=== PATIENT | male | born 1985 | race Caucasian/White ===

== ENCOUNTER 2020-05-02 12:52 | Emergency (ER) | payer MEDICAID, SELFPAY ==
[2020-05-02 13:05] VITALS: BP 155/102; PULSE 100; RESP 18; TEMP 36.7; O2SAT 97; BMI 34.2
--- NOTE | 2020-05-02 13:10 | ED_ITS ---
HPI - Ear Problem General Chief complaint: Ear Problems Stated complaint: EAR PAIN Time Seen by Provider: 05/02/20 13:08 Source: patient Mode of arrival: ambulatory Limitations: no limitations History of Present Illness HPI Narrative: States left ear pain for past several days and today noted slight discharge from the ear. Denies any recent travel or swimming. No bloody discharge. No headache. No ear redness. MD Complaint: ear pain Location: left ear Duration: constant Severity: moderate Relieving factors: other (Has not tried anything) Discharge from ear: yes - clear Treatment prior to arrival: none Related Data Previous Rx's Medication Instructions Recorded amoxicillin-pot clavulanate 1 tab PO BID 10 Days #20 tab 05/02/20 [Augmentin] ibuprofen 800 mg PO Q8H PRN #30 tab 05/02/20 Allergies Allergy/AdvReac Type Severity Reaction Status Date / Time No Known Allergies Allergy Verified 05/02/20 13:07 Review of Systems Review of Systems: Constitutional: No Weight loss, No Fever, No Chills, No Night Sweats, No Fatigue, No Malaise ENT/Mouth: No Hearing loss, + Ear Pain, No Nasal Congestion, No Sinus Pain, No Hoarseness, No sore throat, No Rhinorrhea, No Swallowing Difficulty Eyes: No Eye Pain, No Swelling, No Redness, No Foreign Body, No Discharge, No Vision Changes Cardiovascular: No Chest Pain, No SOB, No Dyspnea on Exertion, No Orthopnea, No Edema, No Palpitations Respiratory: No Cough, No Sputum, No Wheezing, No Smoke Exposure, No Dyspnea Skin: No Skin Lesions, No rash Neuro: No Weakness, No Numbness, No Paresthesias, No Loss of Consciousness, No Dizziness, No Headache Psych: No Social Issues Heme/Lymph: No Bruising, No Bleeding,No Lymphadenopathy Endocrine: No Polyuria, No Polydipsia, No Temperature Intolerance Yes all other systems are reviewed and are negative [facility] Past Medical History Medical History (Updated 05/02/20 @ 13:12 by Harmeet Martinez NP) No known health problems Social History Social History Advance Directives: No Advance Directives Information Provided: Yes Physical Exam Vital Signs: Vital Signs: Last Vital Signs Temp 98.0 F 05/02/20 13:05 Pulse 100 05/02/20 13:05 Resp 18 05/02/20 13:05 BP 155/102 H 05/02/20 13:05 Pulse Ox 97 05/02/20 13:05 Body Mass Index 34.2 Reviewed Const: General: cooperative and healthy appearing; No acute distress or intoxicated appearing Nutritional Appearance: average body habitus Orientation/consciousness: patient oriented x3 HENMT: Head: Yes normal to inspection Ears: TM normal on the left (Slight TM rupture at 07:00 o'clock. No discharge.), mastoids normal and no periauricular adenopathy Eyes: General: appearance normal, both eyes and all related structures Visual Ley: normal visual ley by confrontation Neck: Neck: Yes normal visual inspection, No positive Brudzinski's sign, No positive Kernig's sign and No tender Thyroid: Thyroid normal Chest: Chest palpation & inspection: normal inspection of the chest Resp: Effort & Inspection: normal respiratory effort Neuro: General: patient oriented x3 Extrem: General: Yes normal to inspection Discharge Plan Discharge Clinical Impression: Otitis media Qualifiers: Otitis media type: suppurative Chronicity: acute Laterality: left Recurrence: non-recurrent Spontaneous tympanic membrane rupture: with spontaneous rupture Qualified Code(s): H66.012 - Acute suppurative otitis media with spontaneous rupture of ear drum, left ear Patient Disposition: Home, Self-Care Instructions: Ruptured Eardrum (ED), Ear Infection (ED) Additional Instructions: Take your antibiotic as prescribed Ibuprofen for pain as prescribed No swimming or submerging her head under water Have recheck in 7 days Return if any concerns or worsening symptoms Thank you Prescriptions: New ibuprofen 800 mg tablet 800 mg PO Q8H PRN (Reason: pain) Qty: 30 RF: 0 amoxicillin-pot clavulanate [Augmentin] 875-125 mg tablet 1 tab PO BID 10 Days Qty: 20 RF: 0 Referrals: ED Physician,Generic [Emergency Provider] - 2 days (Your primary care doctor in 7-10 days)
[2020-05-02] MEDS: Ibuprofen 800 MG TABLET PO (13:20)
[2020-05-02] MEDS: Amoxicillin/Potassium Clav 875 MG TABLET PO (13:20)
== END 2020-05-02 13:24 | disposition home or self-care (01) ==
PROVIDERS: Emergency Provider Emergency Medicine
DX: H66.012 Acute suppurative otitis media with spontaneous rupture of ear drum, left ear (principal); H92.02 Otalgia, left ear
CPT/HCPCS: 99283

== ENCOUNTER 2020-12-18 19:59 | Emergency (ER) | payer MEDICAID, SELFPAY ==
--- NOTE | ~2020-12-18 | XR_ITS ---
Indication: Trauma EXAMINATION: Multiple studies, left ankle, left foot, left knee. 2 views of left knee do not demonstrate fracture or dislocation. 3 views of the left foot do not demonstrate acute fracture or dislocation. 2 views of the left ankle do not demonstrate acute fracture or dislocation. Soft tissue swelling is noted. Mild degenerative changes. XR/XR ankle LT 2V IMPRESSION: Multiple studies. No acute bony finding.
--- NOTE | ~2020-12-18 | XR_ITS ---
Indication: Trauma EXAMINATION: Multiple studies, left ankle, left foot, left knee. 2 views of left knee do not demonstrate fracture or dislocation. 3 views of the left foot do not demonstrate acute fracture or dislocation. 2 views of the left ankle do not demonstrate acute fracture or dislocation. Soft tissue swelling is noted. Mild degenerative changes. XR/XR knee LT 2V IMPRESSION: Multiple studies. No acute bony finding.
--- NOTE | ~2020-12-18 | XR_ITS ---
Indication: Trauma EXAMINATION: Multiple studies, left ankle, left foot, left knee. 2 views of left knee do not demonstrate fracture or dislocation. 3 views of the left foot do not demonstrate acute fracture or dislocation. 2 views of the left ankle do not demonstrate acute fracture or dislocation. Soft tissue swelling is noted. Mild degenerative changes. XR/XR foot LT 2V IMPRESSION: Multiple studies. No acute bony finding.
[2020-12-18 20:43] VITALS: BP 125/70; PULSE 67; RESP 16; TEMP 36.2; O2SAT 96; BMI 34.8
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
== END 2020-12-18 23:26 | disposition home or self-care (01) ==
PROVIDERS: Emergency Provider Student in an Organized Health Care Education/Training Program
DX: S93.402A Sprain of unspecified ligament of left ankle, initial encounter (principal); S96.912A Strain of unspecified muscle and tendon at ankle and foot level, left foot, initial encounter; X58.XXXA Exposure to other specified factors, initial encounter; Y93.67 Activity, basketball; Y92.9 Unspecified place or not applicable; Y99.9 Unspecified external cause status
CPT/HCPCS: 73560; 73600; 73620; 99283; 99284

== ENCOUNTER 2021-04-02 16:45 | Emergency (ER) | payer MEDICAID, SELFPAY ==
--- NOTE | ~2021-04-02 | XR_ITS ---
EXAMINATION: XR CHEST CLINICAL INFORMATION: Chest pain COMPARISON: Chest x-ray on 08/13/2019 TECHNIQUE: Frontal view of the chest was obtained. FINDINGS: Significantly diminished lung volumes. The cardiac mediastinal silhouette is normal. No areas of consolidation. No pleural effusions. XR/XR chest 1V IMPRESSION: Diminished lung volumes.
[2021-04-02 17:36] VITALS: BP 154/94; PULSE 93; RESP 22; TEMP 36.6; O2SAT 100; BMI 33.5
--- NOTE | 2021-04-02 17:38 | ECG_ITS ---
Test Reason : SY[place]OPEE Blood Pressure : / mmHG Vent. Rate : 085 BPM Atrial Rate : 085 BPM P-R Int : 180 ms QRS Dur : 098 ms QT Int : 368 ms P-R-T Axes : 047 048 008 degrees QTc Int : 437 ms Normal sinus rhythm Normal ECG No previous ECGs available Referred By: Generic ED Physician Electronically Signed By:CAITY DIAZ MD
[2021-04-02 19:17] LABS: MANUAL DIFF FLAG NO
[2021-04-02 19:23] LABS: Basophils Percent Auto 0.1 % (0-2); Eosinophils Percent Auto 0.1 % (0-4); Hematocrit 43.8 % (42-52); Hemoglobin 15.2 g/dl (14.0-18.0); Imm Gran Abs Auto 0.04 X10*3/uL (0.00-0.03); Imm Gran Pct Auto 0.4 % (0.0-0.4); Lymphocytes Absolute Auto 0.6 X10*3/uL (1.2-4.9); Lymphocytes Percent Auto 6.3 % (20-40); Mean Corpuscular HGB Conc 34.7 g/dl (31.0-36.0); Mean Corpuscular Hemoglobin 29.5 pg (27.0-33.0); Mean Corpuscular Volume 84.9 fL (80-98); Mean Platelet Volume 9.2 fL (9.4-12.4); Monocytes Absolute Auto 0.6 X10*3/uL (0.1-1.2); Monocytes Percent Auto 6.8 % (2-11); Neutrophils Absolute Auto 7.9 X10*3/uL (2.0-8.3); Neutrophils Percent Auto 86.3 % (45-73); Platelet Count 265 X10*3/uL (160-400); Red Blood Count 5.16 X10*6/uL (4.60-5.80); Red Cell Distribution Width 12.2 % (11.0-16.0); White Blood Count 9.1 X10*3/uL (4.8-10.8)
[2021-04-02 19:31] LABS: Anion Gap 15 (12-20); Blood Urea Nitrogen 12 mg/dL (9-16); Carbon Dioxide 19 mmol/L (22-29); Chloride 107 mmol/L (96-108); Creatinine Clr Calc Pharmacy 139.3; Estimated Glomerular Filt Rate > 60; Glucose Random 103 mg/dL (60-115); Potassium 3.6 mmol/L (3.3-5.1); Sodium 137 mmol/L (135-145)
[2021-04-02 19:38] LABS: Troponin-I High Sensitivity < 3.5 ng/L (<3.5-35.0)
[2021-04-02 20:18] LABS: COVID-19 Test Negative (Negative)
--- NOTE | 2021-04-02 21:27 | ED_ITS ---
HPI - Chest Pain General Chief Complaint: Chest Pain Stated Complaint: Bodyaches/Vomiting/Diarrhea Time Seen by Provider: 04/02/21 21:17 Source: patient Mode of arrival: ambulatory Limitations: no limitations Related Data Previous Rx's Medication Instructions Recorded amoxicillin 875 mg-potassium 1 tab PO BID 10 Days #20 tab 05/02/20 clavulanate 125 mg tablet (Augmentin) ibuprofen 800 mg tablet 800 mg PO Q8H PRN #30 tab 05/02/20 Allergies Allergy/AdvReac Type Severity Reaction Status Date / Time No Known Allergies Allergy Verified 04/02/21 17:35 [facility] Past Medical History Attestation statement: The following information was validated with the patient. Medical History No known health problems Social History Social History Advance Directives: No Advance Directives Information Provided: No Physical Exam Vital Signs: Vital Signs: Last Vital Signs Temp 97.9 F 04/02/21 17:36 Pulse 93 04/02/21 17:36 Resp 22 H 04/02/21 17:36 BP 154/94 H 04/02/21 17:36 Pulse Ox 100 04/02/21 17:36 Body Mass Index 33.5 MDM - Chest Pain Lab Data Result diagrams: 04/02/21 19:11 04/02/21 19:11 Labs: Lab Results 04/02/21 04/02/21 04/02/21 Range/Units 19:11 19:11 19:11 WBC 9.1 (4.8-10.8) X10*3/uL RBC 5.16 (4.60-5.80) X10*6/uL Hgb 15.2 (14.0-18.0) g/dl Hct 43.8 (42-52) % MCV 84.9 (80-98) fL MCH 29.5 (27.0-33.0) pg MCHC 34.7 (31.0-36.0) g/dl RDW 12.2 (11.0-16.0) % Plt Count 265 (160-400) X10*3/uL MPV 9.2 L (9.4-12.4) fL Immature Gran % (Auto) 0.4 (0.0-0.4) % Neut % (Auto) 86.3 H (45-73) % Lymph % (Auto) 6.3 L (20-40) % Russell % (Auto) 6.8 (2-11) % Eos % (Auto) 0.1 (0-4) % Baso % (Auto) 0.1 (0-2) % Lymph # (Auto) 0.6 L (1.2-4.9) X10*3/uL Russell # (Auto) 0.6 (0.1-1.2) X10*3/uL Eos # (Auto) 0.0 (0.0-0.4) X10*3/uL Baso # (Auto) 0.0 (0.0-0.2) X10*3/uL Abs Immat Gran (auto) 0.04 H (0.00-0.03) X10*3/uL Absolute Neuts (auto) 7.9 (2.0-8.3) X10*3/uL Absolute Nucleated RBC 0.000 (0.0-0.012) X10*3/uL Nucleated RBC % (auto) 0.0 (0.0-0.2) /100WBC Sodium 137 (135-145) mmol/L Potassium 3.6 (3.3-5.1) mmol/L Chloride 107 (96-108) mmol/L Carbon Dioxide 19 L (22-29) mmol/L Anion Gap 15 (12-20) BUN 12 (9-16) mg/dL Creatinine 0.92 (0.5-1.4) mg/dL Estim Creat Clear Calc 139.3 Estimated GFR > 60 Random Glucose 103 (60-115) mg/dL Calcium 9.0 (8.4-10.2) mg/dL Troponin I High Sens < 3.5 (<3.5-35.0) ng/L COVID-19 (EWA) (Negative) COVID-19 Clin Com 04/02/21 Range/Units 19:55 WBC (4.8-10.8) X10*3/uL RBC (4.60-5.80) X10*6/uL Hgb (14.0-18.0) g/dl Hct (42-52) % MCV (80-98) fL MCH (27.0-33.0) pg MCHC (31.0-36.0) g/dl RDW (11.0-16.0) % Plt Count (160-400) X10*3/uL MPV (9.4-12.4) fL Immature Gran % (Auto) (0.0-0.4) % Neut % (Auto) (45-73) % Lymph % (Auto) (20-40) % Russell % (Auto) (2-11) % Eos % (Auto) (0-4) % Baso % (Auto) (0-2) % Lymph # (Auto) (1.2-4.9) X10*3/uL Russell # (Auto) (0.1-1.2) X10*3/uL Eos # (Auto) (0.0-0.4) X10*3/uL Baso # (Auto) (0.0-0.2) X10*3/uL Abs Immat Gran (auto) (0.00-0.03) X10*3/uL Absolute Neuts (auto) (2.0-8.3) X10*3/uL Absolute Nucleated RBC (0.0-0.012) X10*3/uL Nucleated RBC % (auto) (0.0-0.2) /100WBC Sodium (135-145) mmol/L Potassium (3.3-5.1) mmol/L Chloride (96-108) mmol/L Carbon Dioxide (22-29) mmol/L Anion Gap (12-20) BUN (9-16) mg/dL Creatinine (0.5-1.4) mg/dL Estim Creat Clear Calc Estimated GFR Random Glucose (60-115) mg/dL Calcium (8.4-10.2) mg/dL Troponin I High Sens (<3.5-35.0) ng/L COVID-19 (EWA) Negative (Negative) COVID-19 Clin Com See Note ECG Data ECG #1: Attestation: I personally reviewed and interpreted this ECG as follows: ECG interpretation date: 04/02/21 ECG interpretation time: 21:29 Interpretation: Rate: 85 Rhythm: NSR [place]: normal Normal P waves. Normal CLAUDIA. Normal QRS complex. ST T wave : no RICHARDSON, nonspecific qTC: normal prior studies: no acute ischemia The study has been interpreted contemporaneously by me. . Discharge Plan Discharge Prescriptions: No Action ibuprofen 800 mg tablet 800 mg PO Q8H PRN (Reason: pain) Qty: 30 RF: 0 amoxicillin-pot clavulanate [Augmentin] 875-125 mg tablet 1 tab PO BID 10 Days Qty: 20 RF: 0
[2021-04-02 21:38] LABS: Lipase 21 U/L (8-78)
[2021-04-02] MEDS: 0.9 % Sodium Chloride 1,000 ML 999 ML IV (22:10)
--- NOTE | 2021-04-02 22:11 | ED_ITS ---
HPI - Nausea/Vomiting/Diarrhea General Chief complaint: Chest Pain Stated complaint: Bodyaches/Vomiting/Diarrhea Time Seen by Provider: 04/02/21 21:17 Source: patient Mode of arrival: ambulatory Limitations: no limitations History of Present Illness MD elicited complaint: nausea, vomiting, diarrhea and abdominal pain Onset (ago): hour(s) (started at 11am today) Description of vomiting: food contents and watery Associated nausea: Yes Associated abdominal pain: Yes Location of pain: diffuse Severity: mild Quality: cramping Exacerbating factors: eating Relieving factors: none Context: other (denies ) Associated symptoms: chest pain, fever/chills, headaches, loss of appetite, malaise, nausea/vomiting, weakness and other (syncopal event after multiple bouts of emesis ) Related Data Previous Rx's Medication Instructions Recorded amoxicillin 875 mg-potassium 1 tab PO BID 10 Days #20 tab 05/02/20 clavulanate 125 mg tablet (Augmentin) ibuprofen 800 mg tablet 800 mg PO Q8H PRN #30 tab 05/02/20 ondansetron 4 mg disintegrating 4 mg PO Q8H PRN #20 tab 04/02/21 tablet Allergies Allergy/AdvReac Type Severity Reaction Status Date / Time No Known Allergies Allergy Verified 04/02/21 17:35 Review of Systems Review of Systems: Constitutional : No Weight loss, No Fever, pos Chills ENT/Mouth : No sore throat, No Rhinorrhea Eyes: No Swelling, No Redness Cardiovascular : No Chest Pain, No SOB, NoEdema Respiratory : No Cough, No Sputum, No Wheezing Gastrointestinal : Positive Nausea, Positive Vomiting, positive Diarrhea, positive abdominal Pain, No Hematochezia, No Melena Genitourinary : No Dysuria, No Urinary Frequency, No Hematuria, No Urgency Musculoskeletal : No joint pain, pos Myalgias, No Joint Swelling Skin : No Skin Lesions, No rash Neuro : No Weakness, No Numbness, No Dizziness, No Headache Psych : No Anxiety/Panic, No Depression Heme/Lymph: No Bruising, No Lymphadenopathy Endocrine : No Polyuria, No Polydipsia All other systems reviewed and are negative. Gastrointestinal: Gastrointestinal: Reports nausea PMFSH Past Medical History Attestation statement: The following information was validated with the patient. Medical History No known health problems Social History Social History Alcohol intake: never Patient Tobacco Use Status: Never used Tobacco Use of substances other than those prescribed or required for medical reasons: No Advance Directives: No Advance Directives Information Provided: No Physical Exam Vital Signs: Vital Signs: Last Vital Signs Temp 98.6 F 04/02/21 22:18 Pulse 76 04/02/21 22:18 Resp 18 04/02/21 22:18 BP 131/76 04/02/21 22:18 Pulse Ox 100 04/02/21 22:18 Body Mass Index 33.5 Appearance: Alert. Oriented X3. No acute distress. Eyes: Pupils equal, round and reactive to light. ENT: Pharynx normal. Neck: Normal inspection. Neck supple. CVS: Normal heart rate and rhythm. Pulses normal. Respiratory: No respiratory distress. Breath sounds normal. Abdomen: Soft and nontender. Skin: Skin warm and dry. Normal skin color. Normal skin turgor. Extremities: No lower extremity edema. No calf ttp Neuro: Oriented X 3. No motor deficit. No sensory deficit. Course Course Course Narrative: pateint feels better stable for DC MDM - Nausea/Vomiting/Diarrhea MDM Narrative Medical decision making narrative: 35 yo male comes in with n/v/d and overall not feeling starting this AM, he denies abx, sick contacts, at this time seems viral in nature will obtain basic labs, IVF, supportive medications, he has a benign abdominal exam he notes he had a syncopal episode after multiple bouts of vomiting suspect vasovagal he denies chest pain to me at this time EKG and troponin ordered, chest pain all day he is PERC negative in no distress I do not suspect dissection Lab Data Result diagrams: 04/02/21 19:11 04/02/21 19:11 Labs: Lab Results 04/02/21 04/02/21 04/02/21 Range/Units 19:11 19:11 19:11 WBC 9.1 (4.8-10.8) X10*3/uL RBC 5.16 (4.60-5.80) X10*6/uL Hgb 15.2 (14.0-18.0) g/dl Hct 43.8 (42-52) % MCV 84.9 (80-98) fL MCH 29.5 (27.0-33.0) pg MCHC 34.7 (31.0-36.0) g/dl RDW 12.2 (11.0-16.0) % Plt Count 265 (160-400) X10*3/uL MPV 9.2 L (9.4-12.4) fL Immature Gran % (Auto) 0.4 (0.0-0.4) % Neut % (Auto) 86.3 H (45-73) % Lymph % (Auto) 6.3 L (20-40) % Treasure % (Auto) 6.8 (2-11) % Eos % (Auto) 0.1 (0-4) % Baso % (Auto) 0.1 (0-2) % Lymph # (Auto) 0.6 L (1.2-4.9) X10*3/uL Treasure # (Auto) 0.6 (0.1-1.2) X10*3/uL Eos # (Auto) 0.0 (0.0-0.4) X10*3/uL Baso # (Auto) 0.0 (0.0-0.2) X10*3/uL Abs Immat Gran (auto) 0.04 H (0.00-0.03) X10*3/uL Absolute Neuts (auto) 7.9 (2.0-8.3) X10*3/uL Absolute Nucleated RBC 0.000 (0.0-0.012) X10*3/uL Nucleated RBC % (auto) 0.0 (0.0-0.2) /100WBC Sodium 137 (135-145) mmol/L Potassium 3.6 (3.3-5.1) mmol/L Chloride 107 (96-108) mmol/L Carbon Dioxide 19 L (22-29) mmol/L Anion Gap 15 (12-20) BUN 12 (9-16) mg/dL Creatinine 0.92 (0.5-1.4) mg/dL Estim Creat Clear Calc 139.3 Estimated GFR > 60 Random Glucose 103 (60-115) mg/dL Calcium 9.0 (8.4-10.2) mg/dL Total Bilirubin 1.1 H (0.0-1.0) mg/dL Direct Bilirubin 0.4 (0.0-0.5) mg/dL AST 17 (5-37) U/L ALT 21 (0-40) U/L Alkaline Phosphatase 64 (39-117) U/L Troponin I High Sens < 3.5 (<3.5-35.0) ng/L Total Protein 7.1 (6.5-8.0) g/dL Albumin 4.2 (3.5-5.0) g/dL Lipase 21 (8-78) U/L COVID-19 (EWA) (Negative) COVID-19 Clin Com 04/02/21 04/02/21 Range/Units 19:55 22:16 WBC (4.8-10.8) X10*3/uL RBC (4.60-5.80) X10*6/uL Hgb (14.0-18.0) g/dl Hct (42-52) % MCV (80-98) fL MCH (27.0-33.0) pg MCHC (31.0-36.0) g/dl RDW (11.0-16.0) % Plt Count (160-400) X10*3/uL MPV (9.4-12.4) fL Immature Gran % (Auto) (0.0-0.4) % Neut % (Auto) (45-73) % Lymph % (Auto) (20-40) % Treasure % (Auto) (2-11) % Eos % (Auto) (0-4) % Baso % (Auto) (0-2) % Lymph # (Auto) (1.2-4.9) X10*3/uL Treasure # (Auto) (0.1-1.2) X10*3/uL Eos # (Auto) (0.0-0.4) X10*3/uL Baso # (Auto) (0.0-0.2) X10*3/uL Abs Immat Gran (auto) (0.00-0.03) X10*3/uL Absolute Neuts (auto) (2.0-8.3) X10*3/uL Absolute Nucleated RBC (0.0-0.012) X10*3/uL Nucleated RBC % (auto) (0.0-0.2) /100WBC Sodium (135-145) mmol/L Potassium (3.3-5.1) mmol/L Chloride (96-108) mmol/L Carbon Dioxide (22-29) mmol/L Anion Gap (12-20) BUN (9-16) mg/dL Creatinine (0.5-1.4) mg/dL Estim Creat Clear Calc Estimated GFR Random Glucose (60-115) mg/dL Calcium (8.4-10.2) mg/dL Total Bilirubin (0.0-1.0) mg/dL Direct Bilirubin (0.0-0.5) mg/dL AST (5-37) U/L ALT (0-40) U/L Alkaline Phosphatase (39-117) U/L Troponin I High Sens < 3.5 (<3.5-35.0) ng/L Total Protein (6.5-8.0) g/dL Albumin (3.5-5.0) g/dL Lipase (8-78) U/L COVID-19 (EWA) Negative (Negative) COVID-19 Clin Com See Note ECG Data Attestation: I personally reviewed and interpreted this ECG as follows: ECG interpretation date: 04/02/21 ECG interpretation time: 22:11 Interpretation: Rate: 85 Rhythm: NSR [place]: normal Normal P waves. Normal CLAUDIA. Normal QRS complex. ST T wave : no RICHARDSON, nonspecific qTC: normal prior studies: no acute ischemia The study has been interpreted contemporaneously by me. Discharge Plan Discharge Clinical Impression: Vomiting Qualifiers: Vomiting type: unspecified Vomiting Intractability: non-intractable Nausea presence: with nausea Qualified Code(s): R11.2 - Nausea with vomiting, unspecified Diarrhea Qualifiers: Diarrhea type: unspecified type Qualified Code(s): R19.7 - Diarrhea, unspecified Syncope Qualifiers: Syncope type: vasovagal syncope Qualified Code(s): R55 - Syncope and collapse Patient Disposition: Home, Self-Care Instructions: Syncope (ED), Acute Nausea and Vomiting (ED), Acute Diarrhea (ED) Additional Instructions: return to ED for any worsening symptoms or concerns drink plenty of fluids repeat COVID test in 2 days Prescriptions: New ondansetron 4 mg tablet,disintegrating 4 mg PO Q8H PRN (Reason: nausea and vomiting) Qty: 20 RF: 0 No Action ibuprofen 800 mg tablet 800 mg PO Q8H PRN (Reason: pain) Qty: 30 RF: 0 amoxicillin-pot clavulanate [Augmentin] 875-125 mg tablet 1 tab PO BID 10 Days Qty: 20 RF: 0 Stand Alone Forms: Work/School Release
[2021-04-02 22:18] VITALS: BP 131/76; PULSE 76; RESP 18; TEMP 37; O2SAT 100
[2021-04-02] MEDS: ondansetron HCL 4 MG/2 ML VIAL IVPUSH (22:22)
[2021-04-02] MEDS: Famotidine/PF 20 MG/2 ML VIAL IVPUSH (22:22)
[2021-04-02] MEDS: Acetaminophen 325 MG TABLET 650 MG PO (22:22)
[2021-04-02 22:36] LABS: Alanine Aminotransferase 21 U/L (0-40); Albumin Level 4.2 g/dL (3.5-5.0); Alkaline Phosphatase 64 U/L (39-117); Aspartate Amino Transferase 17 U/L (5-37); Bilirubin Direct 0.4 mg/dL (0.0-0.5); Bilirubin Total 1.1 mg/dL (0.0-1.0); Total Protein 7.1 g/dL (6.5-8.0)
[2021-04-02 22:51] LABS: Troponin-I High Sensitivity < 3.5 ng/L (<3.5-35.0)
== END 2021-04-02 23:26 | disposition home or self-care (01) ==
PROVIDERS: Student in an Organized Health Care Education/Training Program; Emergency Provider Emergency Medicine
DX: M79.10 Myalgia, unspecified site (principal); R51.9 Headache, unspecified; R11.2 Nausea with vomiting, unspecified; R55 Syncope and collapse; Z20.822 Contact with and (suspected) exposure to COVID-19; Z79.899 Other long term (current) drug therapy
CPT/HCPCS: 36415; 71045; 80048; 80076; 83690; 84484; 85025; 87635; 93005; 96361; 96374; 96375; 99285; J2405

== ENCOUNTER 2023-01-05 23:38 | Emergency (ER) | payer MEDICAID, SELFPAY ==
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
[2023-01-05 23:50] VITALS: BP 154/106; PULSE 66; O2SAT 98; BMI 31.3
[2023-01-06] MEDS: oxyCODONE HCl Immed Release 5 MG TABLET PO (00:15)
[2023-01-06] MEDS: Diphth,Pertus(ACell),Tet Adult 0.5 ML SYRINGE IM (00:16)
[2023-01-06] MEDS: Amoxicillin/Potassium Clav 875 MG TABLET PO (00:16)
--- NOTE | 2023-01-06 00:18 | PC.NURSE ---
Pt refused vital check at this time.
--- NOTE | 2023-01-06 00:22 | ED.GENADULT ---
HPI - General Adult General Chief complaint: Animal Bite Stated complaint: Dog Bite Time Seen by Provider: 01/05/23 23:51 Source: patient, RN notes reviewed and old records reviewed Mode of arrival: ambulatory Limitations: no limitations History of Present Illness HPI narrative: 37-year-old male presents for evaluation of a dog bite Patient reports that just prior to arrival he was ?bit by my neighbor down the halls pit bull. He was bit on the left forearm, left buttocks and left lower leg Patient is unsure of the dog's rabies status He is unsure of his own tetanus status He complains of 10/10 pain mostly to the left forearm Related Data Previous Rx's Medication Instructions Recorded amoxicillin 875 mg-potassium 1 tab PO BID 10 days #20 tabs 05/02/20 clavulanate 125 mg tablet (Augmentin) ibuprofen 800 mg tablet 800 mg PO Q8H PRN pain #30 tabs 05/02/20 ondansetron 4 mg disintegrating 4 mg PO Q8H PRN nausea and 04/02/21 tablet vomiting #20 tabs amoxicillin 875 mg-potassium 1 tab PO BID #10 tabs 01/06/23 clavulanate 125 mg tablet Allergies Allergy/AdvReac Type Severity Reaction Status Date / Time No Known Allergies Allergy Verified 04/02/21 17:35 Review of Systems Constitutional: Constitutional: Denies fever(s) Musculoskeletal: Comments: Left forearm pain Integumentary/Breasts: Comments: Puncture wound to left forearm PMFSH Past Medical History Medical History No known health problems Social History Social History Alcohol intake: never Patient Tobacco Use Status: Never used Tobacco Advance Directives: No Advance Directives Information Provided: Yes Physical Exam ED Vital Signs: BMI result Body Mass Index 31.3 Skin Other: Patient has 2 puncture wounds to the left forearm with some fatty tissue exposed, musculature vasculature exposed. Minimal active bleeding from 1 of the wounds in the forearm. Patient has very superficial scrapes to the left buttocks and left lower leg Extrem Other: Mild edema to the left forearm, no significant erythema. No edema or tenderness to left wrist or elbow. Course Reevaluation(s) Reevaluation #1: I had a lengthy discussed with the patient regarding rabies, risks and benefits and the fact that it is fatal if left untreated and the patient was exposed. The patient opted to wait till tomorrow to try to verify that the dog was up-to-date on his rabies vaccine. He reports that he spoke the neighbor who own dog and was told that the dog was up-to-date on rabies but the patient has not seen paperwork to confirm this. I encouraged the patient to return to the ER for the rabies series if he cannot get the paperwork to prove rabies status of the dog or he changes mind and elected to have the rabies series regardless Time: 00:52 Medications Administered Discontinued Medications Generic Name Dose Route Start Last Admin Trade Name Freq PRN Reason Stop Dose Admin Amoxicillin/Clavulanate Potassium 875 mg 01/05/23 23:57 01/06/23 00:16 Amoxicillin/Potassium Clav 875 Mg Tablet PO 01/05/23 23:58 875 mg ONCE ONE Administration Diphtheria/Tetanus/Acell Pertussis 0.5 ml 01/06/23 00:10 01/06/23 00:16 Diphth,Pertus(Acell),Tet Adult 0.5 Ml Syringe IM 01/06/23 00:11 0.5 ml .ONCE ONE Administration Oxycodone HCl 5 mg 01/05/23 23:57 01/06/23 00:15 Oxycodone Hcl Immed Release 5 Mg Tablet PO 01/05/23 23:58 5 mg ONCE ONE Administration Medical Decision Making Medical Decision Making MDM Narrative: Patient sustained a dog bite to left forearm, 2 puncture wounds to left forearm are actively bleeding with some soft tissue exposed. The wounds are not gaping. Do not see any indication for sutures. We will clean the wounds, dressed the wounds. The patient consented to tetanus booster thus far. He is attempting to figure out the dog's rabies status before consenting to rabies series himself. Wound x-ray of the left forearm. He has very minor scratches to the left lower leg and left buttocks Differential Diagnosis Differential Diagnoses: The differential diagnosis associated with the presentation includes Dog bite And will bite Puncture wound Rabies exposure Arm fracture Contusion Independent Interpretation I performed an independent interpretation of an: Plain X-Ray (No acute fracture of the left forearm) Radiology Impression Discussion of test interpretation with radiology: I have reviewed the radiologist's reading. (No obvious displaced fracture of the left forearm) Discharge Plan Discharge Clinical Impression: Dog bite of left forearm Patient Disposition: Home, Self-Care Instructions: Animal Bite (ED) Additional Instructions: Take the Augmentin twice daily for the next 5 days Keep the area clean and dry If you cannot confirm the dog's rabies status may return to the ER to initiate the rabies vaccine Return for new or worsening symptoms Prescriptions: New amoxicillin-pot clavulanate 875-125 mg tablet 1 tab PO BID Qty: 10 0RF No Action ibuprofen 800 mg tablet 800 mg PO Q8H PRN (Reason: pain) Qty: 30 0RF amoxicillin-pot clavulanate [Augmentin] 875-125 mg tablet 1 tab PO BID 10 Days Qty: 20 0RF ondansetron 4 mg tablet,disintegrating 4 mg PO Q8H PRN (Reason: nausea and vomiting) Qty: 20 0RF
[2023-01-06 01:54] VITALS: BP 124/84; PULSE 56; RESP 14; O2SAT 98
== END 2023-01-06 02:03 | disposition home or self-care (01) ==
PROVIDERS: Emergency Provider Internal Medicine
DX: S51.852A Open bite of left forearm, initial encounter (principal); S31.825A Open bite of left buttock, initial encounter; S81.852A Open bite, left lower leg, initial encounter; W54.0XXA Bitten by dog, initial encounter; Y93.9 Activity, unspecified; Y92.9 Unspecified place or not applicable; Y99.9 Unspecified external cause status
CPT/HCPCS: 73090; 90471; 90715; 99284

== ENCOUNTER 2024-03-08 13:55 | Outpatient (REF) | payer MEDICAID, SELFPAY ==
[2024-03-08 17:35] LABS: MANUAL DIFF FLAG NO
[2024-03-08 17:46] LABS: Basophils Percent Auto 0.5 % (0-2); Eosinophils Absolute Auto 0.1 X10*3/uL (0.0-0.4); Eosinophils Percent Auto 1.4 % (0-4); Hematocrit 47.2 % (42.0-52.0); Hemoglobin 15.6 g/dl (14.0-18.0); Imm Gran Abs Auto 0.04 X10*3/uL (0.00-0.03); Imm Gran Pct Auto 0.5 % (0.0-0.4); Lymphocytes Absolute Auto 1.5 X10*3/uL (1.2-4.9); Lymphocytes Percent Auto 18.7 % (20-40); Mean Corpuscular HGB Conc 33.1 g/dl (31.0-36.0); Mean Corpuscular Hemoglobin 29.4 pg (27.0-33.0); Mean Corpuscular Volume 89.1 fL (80.0-98.0); Mean Platelet Volume 9.9 fL (9.4-12.4); Monocytes Absolute Auto 0.5 X10*3/uL (0.1-1.2); Monocytes Percent Auto 6.5 % (2-11); Neutrophils Absolute Auto 5.7 x10*3/uL (2.0-8.3); Neutrophils Percent Auto 72.4 % (45-73); Platelet Count 283 X10*3/uL (160-400); Red Cell Distribution Width 12.7 % (11.0-16.0); White Blood Count 7.8 X10*3/uL (4.8-10.8)
[2024-03-08 18:06] LABS: Alanine Aminotransferase 15 U/L (0-40); Albumin Level 4.5 g/dL (3.5-5.0); Alkaline Phosphatase 65 U/L (39-117); Anion Gap 11 (12-20); Aspartate Amino Transferase 17 U/L (5-37); Bilirubin Total 0.6 mg/dL (0.0-1.0); Blood Urea Nitrogen 10 mg/dL (9-16); Calcium 10.3 mg/dL (8.4-10.2); Carbon Dioxide 26 mmol/L (22-29); Chloride 106 mmol/L (96-108); Cholesterol 212 mg/dL (<200); Estimated Glomerular Filt Rate > 60; Glucose Random 89 mg/dL (60-115); HDL Cholesterol 59 mg/dL (>40); LDL Cholesterol Calculated 127 mg/dL (<100); Potassium 4.2 mmol/L (3.3-5.1); Sodium 139 mmol/L (135-145); Triglycerides 133 mg/dL (<150)
[2024-03-08 18:21] LABS: TSH reflex Free T4 9.78 uIU/mL (0.32-4.0)
[2024-03-08 18:28] LABS: HIV AB/AG Nonreactive (Nonreactive); HIV Num 1 0.04 S/CO (0.00-0.99); ~HepC Num1 0.13 S/CO (0.00-0.79); ~Hepatitis C Antibody Nonreactive (Nonreactive)
[2024-03-08 19:01] LABS: Free T4 (Free Thyroxine) 0.72 ng/dL (0.71-1.85)
[2024-03-09 15:33] LABS: Triiodothyronine T3 Total 119 ng/dL (76-181)
== END 2024-03-08 13:56 | disposition home or self-care (01) ==
LOC: HO.CHCLDS 13:55
PROVIDERS: Visit Provider Family Medicine
DX: E07.9 Disorder of thyroid, unspecified (principal); E66.9 Obesity, unspecified; Z13.9 Encounter for screening, unspecified
CPT/HCPCS: 36415; 80053; 80061; 84439; 84443; 84480; 85025; 86803; 87389

== ENCOUNTER 2024-04-03 09:18 | Outpatient (AMB) | payer OTHER, SELFPAY ==
--- NOTE | 2024-04-03 09:36 | MHC.OFFVIS ---
Vital Signs 04/03/24 09:43 Height 5 ft 10 in Weight 220 lb BMI 31.6 BP 130/86 Blood Pressure Location Rt brachial Position Sitting Pulse 61 Intake Visit Reasons: epidermal inclusion cyst upper neck Intake Note: Patient referred for cyst on posterior neck. Present for 2m. Denies bleeding, oozing, 2nd concern: Lt arm. Painful to touch. Present for 5ys. 3rd concern: large skin tag on mid lower back. Present since childhood. 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 Lower back fibroepithelial polyp 3. Left proximal forearm skin lesion He has had these for a variety of months to years. They are all increasing in size become more symptomatic. Patient like to have each removed. Chart was reviewed and patient evaluated [facility] Medical History No known health problems Social History (Updated 04/03/24 @ 09:44 by MARIO Villeda) Alcohol intake: never Patient Tobacco Use Status: Never used Tobacco Substance Use Type: Marijuana Physical Exam Vital Signs: Last Vital Signs Pulse 61 04/03/24 09:43 BP 130/86 04/03/24 09:43 BMI result Body Mass Index 31.6 Neck Other: 3 x 2 cm right posterior neck sebaceous cyst Back/Spine/Pelvis Other: Lower mid back fibroepithelial polyp measuring approximately 2 x 2 cm. Extrem Other: Dorsal proximal forearm skin lesion measuring 1 x 1 cm Office Procedures Excision 12516-Pvpcrnly scalp/neck/hands/feet/genitalia 2.1cm-3cm Details: Risks, benefits, alternatives of excision of these 3 lesions were reviewed with the patient and included but not limited to bleeding, infection, recurrence, numbness, pain, scarring and the patient wished to proceed. All questions answered. Consent signed. After appropriate positioning, commencing with the upper posterior neck sebaceous cyst, patient underwent 1% lidocaine and Betadine prep and a transverse by elliptical incision was made and excision of the symptoms uneventfully performed. Specimen measured roughly 3 x 2 cm. Specimen sent to pathology. Wound was irrigated, secured hemostasis, and closed using running subcuticular 3-0 Vicryl suture followed by Steri-Strips and sterile dressings. Next the lower back fibroepithelial polyp was again prepped and draped and infiltrated 1% lidocaine uneventful tangential excision was made of the lesion were measuring roughly 2 x 1 cm. Specimen sent to pathology. Wound base cauterized silver nitrate followed by bacitracin sterile dressing. Left proximal forearm lesion was prepped and draped in usual sterile fashion infiltrated 1% lidocaine a small transverse by elliptical incision measuring roughly 1 x 0.5 cm of the skin lesion was uneventfully performed and specimen excised sent to pathology. Wound was irrigated, secured hemostasis, and closed using interrupted inverted dermal 3-0 Vicryl sutures followed by Steri-Strips and sterile dressings. Patient tolerated all 3 procedures well. 04796-sprqc/arms/legs 0.6-1cm 58154-abjcl/arms/legs 1.1-2cm Procedure code (CPT) selection complete Office Meds lidocaine 1 %-epinephrine 1:100,000 injection solution Performing Provider: Jairo Carrillo MD Performing Location: [facility] [place] [facility] Administered by: Jairo Carrillo MD on 04/03/24 10:59 Dose Route Admin Location Dispensed Lot Number Expiration Date [facility] [employer] 20 mL Infiltration 20 mL Assessment & Plan Assessment & Plan (1) Fibroepithelial polyp: Code(s): L91.8 - Other hypertrophic disorders of the skin Category: Surgical Plan: Patient was been given local instructions including avoiding strenuous activities, may shower in 2 days, Motrin or Tylenol p.r.n. pain, ice to the wound periodically, and will see me in roughly 1 week's time or p.r.n.. All questions answered. (2) Sebaceous cyst: Code(s): L72.3 - Sebaceous cyst Category: Surgical Plan: See above (3) Skin lesion of left arm: Code(s): L98.9 - Disorder of the skin and subcutaneous tissue, unspecified Category: Surgical Plan: See above Orders: Orders Surgical Today D48.9 - Neoplasm of uncertain behavior, unspecified, L72.0 - Epidermal cyst, L91.8 - Other hypertrophic disorders of the skin AMB Excision Today L72.3 - Sebaceous cyst, L91.8 - Other hypertrophic disorders of the skin, L98.9 - Disorder of the skin and subcutaneous tissue, unspecified Medications: New lidocaine-epinephrine 1 %-1:100,000 20 mL Infiltration ONCE 30 mL 0RF L72.3 - Sebaceous cyst, L91.8 - Other hypertrophic disorders of the skin, L98.9 - Disorder of the skin and subcutaneous tissue, unspecified Discontinued amoxicillin-pot clavulanate 875-125 mg (Augmentin) Discontinued Reason: Patient no longer taking 1 tab PO BID 10 days 20 tabs 0RF amoxicillin-pot clavulanate 875-125 mg Discontinued Reason: Patient no longer taking 1 tab PO BID 10 tabs 0RF Coding Level of Care Code New Pt Level 5 (64584) Diagnoses Fibroepithelial polyp L91.8 Sebaceous cyst L72.3 Skin lesion of left arm L98.9 CPT Codes Trunk/Arms/Legs - CPT: 53018-czzfj/arms/legs 0.6-1cm ([id number]) Trunk/Arms/Legs - CPT: 35237-ftvcs/arms/legs 1.1-2cm ([id number]) Scalp/Neck/Hands/Feet/Genetalia - CPT: 81524-Wgftcsno scalp/neck/hands/feet/genitalia 2.1cm-3cm ([id number])
[2024-04-03 09:43] VITALS: BP 130/86; PULSE 61; BMI 31.6
== END 2024-04-03 10:21 | disposition home or self-care (01) ==
PROVIDERS: PCP Family Medicine; Visit Provider Surgery
DX: L91.8 Other hypertrophic disorders of the skin (principal); L72.3 Sebaceous cyst; L98.9 Disorder of the skin and subcutaneous tissue, unspecified
CPT/HCPCS: 11401; 11402; 11423; 99203

== ENCOUNTER 2024-04-10 07:40 | Outpatient (AMB) | payer OTHER, SELFPAY ==
--- NOTE | 2024-04-10 07:52 | MHC.OFFVIS ---
Intake Visit Reasons: wound check, excision x3 Intake Note: Patient here s/p exc X3. A. Mid post neck, B. Lt ant arm, C. Mid lower back. Reports incisions healing well. Patient c/o: tenderness at lt arm site. 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 He has no significant wound issues or complaints. Pathology was reviewed. All lesions were benign. The left forearm lesion we discussed is a small chance it may recurrent if so formal excision can be undertaken. At present we will treat the patient conservatively [facility] Medical History No known health problems Social History (Updated 04/03/24 @ 09:44 by MARIO Villeda) Alcohol intake: never Patient Tobacco Use Status: Never used Tobacco Substance Use Type: Marijuana Physical Exam Skin Other: All incisions left forearm, upper back, lower back healing uneventfully. Assessment & Plan Assessment & Plan (1) Postop check: Code(s): Z09 - Encounter for follow-up examination after completed treatment for conditions other than malignant neoplasm Category: Surgical Plan Patient was been given local instructions including avoiding strenuous activities next few days time we will otherwise follow-up p.r.n.. All questions answered. Coding Level of Care Code Global (47521) Diagnoses Postop check Z09
== END 2024-04-10 07:59 | disposition home or self-care (01) ==
PROVIDERS: PCP Family Medicine; Visit Provider Surgery
DX: Z09 Encounter for follow-up examination after completed treatment for conditions other than malignant neoplasm (principal)
CPT/HCPCS: 99024

== ENCOUNTER → 2024-04-10 07:40 | Outpatient (BNVA) | payer OTHER, SELFPAY | PROVIDERS: PCP Family Medicine; Visit Provider Surgery | DX: Z09 Encounter for follow-up examination after completed treatment for conditions other than malignant neoplasm (principal) | CPT/HCPCS: 99212 ==